=== PATIENT | male | born 1985 | race Caucasian/White ===

== ENCOUNTER 2017-02-14 18:14 | Emergency (ER) | payer SELFPAY | END 2017-02-14 20:25 | disposition home or self-care (01) | LOC: D.ER 18:14 | DX: M54.5 Low back pain (principal); M54.30 Sciatica, unspecified side; F17.200 Nicotine dependence, unspecified, uncomplicated ==

== ENCOUNTER 2018-07-31 19:48 | Emergency (ER) | payer SELFPAY ==
[~2018-07-31] VITALS: Ht 185.4 cm; Wt 112.7 kg
[2018-07-31 19:57] VITALS: Ht 185.4 cm; Wt 112.7 kg
[2018-07-31] MEDS ORDERED: TORADOL10 MG PO (20:49)
[2018-07-31 22:58] VITALS: BP 120/68
== END 2018-07-31 21:45 | disposition home or self-care (01) ==
LOC: D.ER 19:48
DX: S60.222A Contusion of left hand, initial encounter (principal); W23.0XXA Caught, crushed, jammed, or pinched between moving objects, initial encounter; Y93.89 Activity, other specified; Y92.89 Other specified places as the place of occurrence of the external cause; F17.200 Nicotine dependence, unspecified, uncomplicated